=== PATIENT | male | born 1950 | race Caucasian/White ===

== ENCOUNTER 2017-07-07 08:03 | Day surgery (SDC) | payer BC ==
[~2017-07-07 08:03] MED LIST: Buffered Lidocaine 0.9% SYRIN* 5 ML/SYR SYRINGE INTRADERM ONE; Dexamethasone IV* 4 MG/ML 1 ML (4 MG) IV SLOW PU ONE; Famotidine IV* 10 MG/ML 2 ML (20 mg) IV ONE
[2017-07-07] MEDS ORDERED: Dexamethasone IV* 4 MG/ML 1 ML (4 MG) ONE (08:10)
[2017-07-07] MEDS ORDERED: Famotidine IV* 10 MG/ML 2 ML (20 mg) ONE (08:11)
[2017-07-07] MEDS ORDERED: Buffered Lidocaine 0.9% SYRIN* 5 ML/SYR SYRINGE ONE (08:11)
[2017-07-07] MEDS ORDERED: PROCHLORPERAZINE INJ 5 MG/ML 2 ML VIAL IV PRN (10:11)
[2017-07-07] MEDS ORDERED: oxyCODONE/Acetamin 5/325 MG* TAB PO PRN (10:11)
[2017-07-07] MEDS ORDERED: Ketorolac INJ* 30 MG/ML 1 ML VIAL IV PRN (10:11)
[2017-07-07] MEDS ORDERED: HYDROcodone/ACETAMIN 5-325 MG* 1 TAB PO PRN (10:11)
[2017-07-07] MEDS ORDERED: fentaNYL* 50 MCG/ML 2 ML VIAL (100 MCG VIAL) IV PRN (10:11)
[2017-07-07] MEDS ORDERED: Oxymetazoline 0.05% NASAL SPR* 15 ML BTL ONE ×2 (10:12→11:09)
[2017-07-07] MEDS ORDERED: Gelatin ADSORBABLE (OPHTH)* OPHTH.FILM ONE ×2 (10:13→11:23)
[2017-07-07] MEDS ORDERED: Gelfoam 12-7 ADSORBABL SPONGE* 1 EA SPONGE ONE ×2 (10:13→11:23)
[2017-07-07] MEDS ORDERED: Gelfoam Sponge SIZE 100* SPONGE ONE (10:13)
[2017-07-07] MEDS ORDERED: Lidocaine 2% W/EPI 1:100,000* 20 ML MDV ONE ×2 (10:13→11:09)
[2017-07-07] MEDS ORDERED: Midazolam* 1 MG/ML 5 ML VIAL (5 MG) ONE (10:15)
[2017-07-07] MEDS ORDERED: fentaNYL* 50 MCG/ML 2 ML VIAL (100 MCG VIAL) ONE ×2 (10:15→11:01)
[2017-07-07] MEDS ORDERED: Mivacurium Chloride* 20 MG/10 ML VIAL IV ONE (10:18)
[2017-07-07] MEDS ORDERED: Propofol* 10 MG/ML 20 ML BTL IV PUSH ONE (10:18)
[2017-07-07] MEDS ORDERED: Lidocaine 2% PF * 5 ML VIAL ONE (10:18)
[2017-07-07] MEDS ORDERED: Triamcinolone Acetonide* 40 MG/ML 1 ML VIAL ONE ×2 (11:11→11:25)
[2017-07-07] MEDS ORDERED: Ondansetron INJ* 2 MG/ML VIAL ONE (11:18)
[2017-07-07 13:05] VITALS: BP 147/90
--- NOTE | 2017-07-07 16:23 | OP ---
DATE OF OPERATION: 07/07/17 [facility] DATE OF : 50 SURGEON: Aubrey Palm MD. ANESTHESIOLOGIST: Odette Cook MD ANESTHESIA: General PRE-OP DIAGNOSES: Chronic sinusitis, deviated septum, hypertrophied turbinates. POST-OP DIAGNOSES: Chronic sinusitis, deviated septum, hypertrophied turbinates. OPERATIVE PROCEDURE: Bilateral videoendoscopic maxillary antrostomy and bilateral videoendoscopic anterior and posterior ethmoidectomy. BRIEF HISTORY: This 67-year-old gentleman with significant nasal symptoms including nasal dyspnea, chronic symptoms suggestive of sinusitis, extensive opacification on the CT scan of the ethmoids and maxillary sinuses. I have tried nasal steroids, oral antibiotics, and other medical management issues without improvement. DESCRIPTION OF PROCEDURE: The patient was taken to the operating room, general anesthetic was given, the patient was intubated. Nose was decongested with Afrin pledgets. A 0-degree telescope, 30-degree telescope, and other endoscopic sinus surgery instruments, including a microshaver were utilized. Initially, I had a plan to do a septoplasty in the ethmoid turbinates, but as the surgery progressed, there was extensive bleeding from the ethmoids and lateral nasal wall, and I decided to abort the septoplasty in the ethmoid turbinates for fear of additional scarring complications. Initially, 2% lidocaine with epinephrine was infiltrated into the mucosa of the uncinate on both sides, ethmoid and middle turbinate. Uncinectomy was then carried out, microshaver was utilized. Again, extensive bleeding was immediately identified. Antrostomy was carried out. Copious amounts of purulent material removed from the left antrum. Ethmoid-ectomy was then carried out, resecting out the ethmoidal bulla, coursing posterior towards the skull base and superiorly towards the nasofrontal duct area, and lateral towards the lamina papyracea. Once adequate resection of the ethmoid was carried out, on experiencing too much bleeding, I packed with Gelfoam, multiple pieces. These were soaked with Kenalog. We turned our attention to the right side. Here too, again, the uncinate process was removed. Antrostomy widened. Large polypoidal mucosal mass was resected out with the microshaver. We then turned our attention to the ethmoid , resecting the ethmoidal bulla, coursing posteriorly through the ground lamella to the skull base, anteriorly towards the nasofrontal duct, and laterally towards the lamina papyracea, preserving most of the middle turbinate. The area was then packed with Gelfoam, which was soaked with Kenalog. The patient was awakened, sent to recovery room in stable condition. Instruments and sponge counts were correct. Blood loss was approximately 150 cc. [id number]/[facility] #: [id number] [facility]Min
== END 2017-07-07 13:09 | disposition home or self-care (01) ==
LOC: OR 08:03
PROVIDERS: ATTEND Otolaryngology
DX: J32.8 Other chronic sinusitis (principal); J34.2 Deviated nasal septum; J34.3 Hypertrophy of nasal turbinates; J31.0 Chronic rhinitis; Z72.0 Tobacco use; Z86.19 Personal history of other infectious and parasitic diseases; Z86.718 Personal history of other venous thrombosis and embolism
CPT/HCPCS: 36415; 86803; A9270-GY; J1100; J2250; J2405; J2704; J3010; J3301